=== PATIENT | male | born 1965 | race Caucasian/White ===

== ENCOUNTER 2019-05-30 02:17 | Inpatient (IN) | payer MEDICAID ==
[~2019-05-30] VITALS: Ht 172.7 cm; Wt 77.1 kg
[2019-05-30 04:00] VITALS: BP 161/80
[2019-05-30] MEDS ORDERED: ASPI-1152 PO (04:17)
[2019-05-30] MEDS ORDERED: ATOR20TA PO (04:17)
[2019-05-30] MEDS ORDERED: CALC667C6 PO (04:17)
[2019-05-30] MEDS ORDERED: FERR325T23 PO (04:20)
[2019-05-30] MEDS ORDERED: HYDR-4076 PO (04:35)
[2019-05-30] MEDS ORDERED: METO50TA16 PO (04:35)
[2019-05-30] MEDS ORDERED: NIFE60TA69 PO (04:35)
[2019-05-30] MEDS ORDERED: GABA-532 PO (04:35)
[2019-05-30] MEDS ORDERED: ONDA4AMP IJ (04:38)
[2019-05-30] MEDS ORDERED: TEMA15CA PO (04:40)
[2019-05-30] MEDS ORDERED: TEMAZEPAM 15 MG CAPSULE PO PRN (06:00)
[2019-05-30] MEDS ORDERED: ACETAMINOPHEN 325 MG TABLET PO PRN (06:00)
[2019-05-30] MEDS ORDERED: ALBUTEROL FS 2.5 MG/3 ML VIAL.NEB NEB PRN (06:00)
[2019-05-30] MEDS ORDERED: ONDANSETRON HCL/PF 4 MG/2 ML VIAL IVP PRN (06:00)
[2019-05-30] MEDS ORDERED: MORPHINE SULFATE INJ 2 MG/ML DISP.SYRIN IV PRN (06:00)
[2019-05-30] MEDS: METOPROLOL TARTRATE 50 MG TABLET PO SCH ×2 (07:24→22:27)
--- NOTE | 2019-05-30 07:32 | NUR ---
MS IGLESIA OPENING NOTES RECEIVED PATIENT IN BED, AWAKE AND ALERT. ARABIC SPEAKING. ON TELE MONITORING WITH SR: 71. HOB ELEVATED. NO SOB. DENIES ANY C/O PAIN NOR DISCOMFORT AT THIS TIME. RIGHT FA SL G#18 INTACT AND PATENT WITHOUT S/S OF COMPLICATIONS AT THIS TIME. BED IN LOWEST POSITION. BED SIDERAILS UP X2. CALL LIGHT WITHIN REACH. Addendum: 05/30/19 at 1012 by ALEXUS PATTERSON RN LEFT FA AV FISTULA WITH GOOD BRUIT/THRILL
[2019-05-30 07:57] LABS: BASOPHILS # (AUTO) 0.1 /CMM (0.0-0.2); BASOPHILS % (AUTO) 1.1 % (0.0-2.0); HEMATOCRIT 36 % (39-51); HEMOGLOBIN 11.9 g/dL (13.5-17.5); LYMPHOCYTES # (AUTO) 1.4 /CMM (0.8-4.8); LYMPHOCYTES % (AUTO) 31.6 % (20.0-44.0); MEAN CORPUSCULAR HGB CONC 33 g/dl (31.0-36.0); MEAN CORPUSCULAR VOLUME 99 fL (80-96); MONOCYTES # (AUTO) 0.7 /CMM (0.1-1.30); MONOCYTES % (AUTO) 15.1 % (2.0-12.0); NEUTROPHILS # (AUTO) 2.3 /CMM (1.8-8.9); NEUTROPHILS % (AUTO) 52.2 % (43.0-81.0); PLATELET COUNT (AUTO) 116 /CMM (150-450); RED BLOOD CELL COUNT(AUTO) 3.64 MIL/uL (4.5-6.0); WHITE BLOOD COUNT (AUTO) 4.5 K/uL (4.3-11.0)
[2019-05-30 08:00] VITALS: BP 126/69
[2019-05-30 08:16] LABS: ALANINE AMINOTRANSFERASE 44 U/L (12-78); ALBUMIN 3.1 g/dL (3.4-5.0); ALKALINE PHOSPHATASE 88 U/L (46-116); ASPARTATE AMINOTRANSFERASE 23 U/L (15-37); BILIRUBIN,TOTAL 0.4 mg/dL (0.2-1.0); CALCIUM, SERUM 8.1 mg/dL (8.5-10.1); CARBON DIOXIDE 33 mmol/L (21-32); CHLORIDE 95 mmol/L (98-107); GLUCOSE 82 mg/dL (74-106); MAGNESIUM 2.2 mg/dL (1.8-2.4); PHOSPHORUS 3.7 mg/dL (2.5-4.9); POTASSIUM 4.9 mmol/L (3.5-5.1); SODIUM SERUM 135 mmol/L (136-145); TOTAL PROTEIN, SERUM 6.9 g/dL (6.4-8.2); UREA NITROGEN, BLOOD 71 mg/dL (7-18)
[2019-05-30 08:22] LABS: CHOLESTEROL 81 mg/dL (<200); CREATININE 9.7 mg/dL (0.6-1.3); HDL CHOLESTEROL 45 mg/dL (40-60); LDL 27 mg/dL (0-99); THYROID STIMULATING HORMONE 0.622 uIU/mL (0.358-3.74); TRIGLYCERIDES 35 mg/dL (30-150)
--- NOTE | 2019-05-30 08:25 | NUR ---
MS RN NOTES RECEIVED LAB RESULTS FROM [facility] OF 9.7, NOTIFIED OLIVE AND PENDING [facility] CONSULT, AWAITING FOR RESPONSE.
--- NOTE | 2019-05-30 08:26 | NUR ---
MS RN NOTES PER PRIMARY HOSPITALIST, OLIVE FONSECA NP NO NEW ORDER AT THIS TIME. PATIENT PENDING [facility] CONSULT.
[2019-05-30] MEDS: NIFEdipine XL 60 MG TAB PO SCH (09:00)
[2019-05-30] MEDS ORDERED: ASPIRIN EC 81 MG TABLET.DR PO SCH (09:00)
[2019-05-30] MEDS: hydrALAZINE HCL 25 MG TABLET PO SCH ×3 (09:00→17:00)
[2019-05-30] MEDS ORDERED: FERROUS SULFATE (325 MG) 325 MG/TAB TABLET PO SCH (09:00)
[2019-05-30 09:04] LABS: LYMPHOCYTES % (MANUAL) 33 % (16-48); MONOCYTES % (MANUAL) 12 % (0-11.0); NEUTROPHILS % (MANUAL) 55 (42-76)
[2019-05-30] MEDS: PANTOPRAZOLE 40 MG TABLET.DR PO SCH (09:51)
[2019-05-30] MEDS: GABAPENTIN 100 MG CAPSULE PO SCH ×3 (09:51→17:20)
[2019-05-30] MEDS: CALCIUM ACETATE 667 MG TABLET PO SCH ×3 (09:52→17:20)
[2019-05-30] MEDS: DOCUSATE SODIUM 100 MG CAPSULE PO SCH ×2 (09:52→17:20)
--- NOTE | 2019-05-30 09:54 | NUR ---
MS RN NOTES HELD AM BP MEDS, PATIENT SCHEDULED TO HAVE HD TODAY. PROTONIX GIVEN LATE DUE TO NPO STATUS AT THAT TIME.
--- NOTE | 2019-05-30 10:01 | NUR ---
MS RN NOTE PRIMARY HOSPITALIST OLIVE FONSECA, ELECTRONIC EQUIPMENT REPAIRMEN AT THE BEDSIDE FOR ROUNDING, NO NEW ORDERS AT THIS TIME, ANTICIPATE HD TODAY AFTER , [facility] CONSULTS ON PATIENT.
[2019-05-30 12:46] LABS: THYROID STIMULATING HORMONE 0.664 uIU/mL (0.358-3.74)
--- NOTE | 2019-05-30 15:30 | NUR ---
MS RN NOTE HOME MEDICATIONS TAKEN TO PHARMACY PER PROTOCOL.
--- NOTE | 2019-05-30 15:54 | NUR ---
MS RN NOTE PER HD NURSE YORDY, ANOTHER HD NURSE DANIELLE WILL BY LATER TODAY FOR HD.
[2019-05-30 16:00] VITALS: BP 116/64
--- NOTE | 2019-05-30 17:21 | NUR ---
MS RN NOTES HELD 5 PM BP MEDS, PATIENT WILL HAVE HD TODAY.
--- NOTE | 2019-05-30 17:35 | NUR ---
MS RN NOTES PER DANIELLE DIALYSIS NURSE, SHE WILL COME IN ONE HOUR TO DIALYZED PATIENT.
--- NOTE | 2019-05-30 18:54 | NUR ---
MS RN CLOSING NOTES PATIENT IN BED, ATE DINNER WITH GOOD INTAKE. HOB ELEVATED. DENIES ANY C/O DISCOMFORT. DENIES C/O SOB. HOB ELEVATED. RIGHT FA G#18 INTACT AND PATENT WITH S/S OF INFILTRATION. LEFT FOREARM AV FISTULA, BRUIT/THRILL PRESENT. FAMILY AT BEDSIDE. DIALYSIS NURSE ARRIVED, WILL INITIATE HD. ENDORSED TO ONCOMING SHIFT.
--- NOTE | 2019-05-30 19:15 | NUR ---
MS MARY INITIAL NOTES RECEIVED REPORT FROM AM NURSE WHILE DOING ROUNDS AND SEEN AWAKE AND ALERT WITH ON GOING DIALYSIS TREATMENT WITH DIALYSIS NURSE AT THE BEDSIDE WELL HIS DAUGHTER. PT DENIES ANY PAIN OR ANY DISCOMFORT. NO SIGNS OF ANY DISTRESS NOTED. WILL CONTINUE MONITORING.
[2019-05-30 20:00] VITALS: BP 128/73
[2019-05-30] MEDS ORDERED: ATORVASTATIN 10 MG TABLET PO SCH (22:00)
--- NOTE | 2019-05-30 22:27 | NUR ---
ms cleo notes dialysis finished and per dialysis nurse output 2700 ml. pt awake and alert watching TV. due meds given as ordered. snacks also served per pt requested. kept him comfortable at all times. will continue monitoring. place call light at reach.
--- NOTE | 2019-05-31 01:58 | NUR ---
ms bow maker custom notes checked pt he's sleeping comfortably in bed without any distress noted. kept him warm and comfortable at all times. place call light at reach will continue monitoring.
[2019-05-31 06:29] LABS: EOSINOPHILS % (AUTO) 0.1 % (0.0-6.0); HEMATOCRIT 37 % (39-51); HEMOGLOBIN 12.3 g/dL (13.5-17.5); LYMPHOCYTES % (AUTO) 25.1 % (20.0-44.0); MEAN CORPUSCULAR HGB CONC 33 g/dl (31.0-36.0); MEAN CORPUSCULAR VOLUME 99 fL (80-96); MONOCYTES # (AUTO) 0.5 /CMM (0.1-1.30); MONOCYTES % (AUTO) 12.6 % (2.0-12.0); NEUTROPHILS # (AUTO) 2.4 /CMM (1.8-8.9); NEUTROPHILS % (AUTO) 61.2 % (43.0-81.0); PLATELET COUNT (AUTO) 132 /CMM (150-450); RED BLOOD CELL COUNT(AUTO) 3.75 MIL/uL (4.5-6.0); WHITE BLOOD COUNT (AUTO) 3.9 K/uL (4.3-11.0)
[2019-05-31] MEDS: PANTOPRAZOLE 40 MG TABLET.DR PO SCH (06:41)
--- NOTE | 2019-05-31 06:52 | NUR ---
ms home theater expert closing notes pt sleeping but arouse to touch and to his name, due med given and pt tolerated well. stable todd the night and slept well. kept him warm and comfortable at all times. No signs of any distress noted. on semi fowlers position with side rails x2 up and bed in low and lock in position. place call light at reach. endorse to am nurse Rossy/jeffrey for continuity of care.
[2019-05-31 07:01] LABS: ALBUMIN 3.2 g/dL (3.4-5.0); BILIRUBIN,TOTAL 0.3 mg/dL (0.2-1.0); CALCIUM, SERUM 8.1 mg/dL (8.5-10.1); MAGNESIUM 2.3 mg/dL (1.8-2.4); PHOSPHORUS 4.2 mg/dL (2.5-4.9); POTASSIUM 5.4 mmol/L (3.5-5.1); TOTAL PROTEIN, SERUM 7.4 g/dL (6.4-8.2)
[2019-05-31 07:08] LABS: CREATININE 8.4 mg/dL (0.6-1.3)
--- NOTE | 2019-05-31 07:24 | NUR ---
MS RN OPENING NOTES RECEIVED PATIENT IN BED, AWAKE AND ALERT ORIENTED X3. CONGOLESE SPEAKING. HOB ELEVATED. NO SOB. DENIES ANY C/O PAIN NOR DISCOMFORT AT THIS TIME. RIGHT FA SL G#18 INTACT AND PATENT NO S/S OF INFILTRATION. BED ALARM ON. BRP. BED IN LOWEST POSITION. BED SIDERAILS UP X2. CALL LIGHT WITHIN REACH.
[2019-05-31] MEDS: CALCIUM ACETATE 667 MG TABLET PO SCH ×3 (08:18→16:16)
[2019-05-31] MEDS: GABAPENTIN 100 MG CAPSULE PO SCH ×3 (08:18→16:16)
[2019-05-31] MEDS: DOCUSATE SODIUM 100 MG CAPSULE PO SCH ×2 (08:18→16:16)
[2019-05-31] MEDS: METOPROLOL TARTRATE 50 MG TABLET PO SCH (09:00)
[2019-05-31] MEDS: hydrALAZINE HCL 25 MG TABLET PO SCH ×3 (09:00→16:17)
[2019-05-31] MEDS: NIFEdipine XL 60 MG TAB PO SCH (09:00)
--- NOTE | 2019-05-31 09:54 | NUR ---
MS RN NOTES HELD AM BP MEDS, ANTICIPATING HD TODAY.
[2019-05-31] MEDS ORDERED: LEVO500T75 PO (10:27)
--- NOTE | 2019-05-31 12:30 | NUR ---
MS RN NOTE PER HD NURSE YORDY, HE SPOKE WITH DATE PULLER WHO IS REQUESTING STAT BMP POST HD PRIOR TO D/C TO INSURE ACCESS IS FUNCTIONING PROPERLY. ORDERS CONFIRMED AND CARRIED OUT.
--- NOTE | 2019-05-31 13:00 | NUR ---
MS RN NOTES PATIENT COMPLETED HD THERAPY WITH 1.5 L OUTPUT. PATIENT WITH B/P 181/95, HR: 80, T: 97.9 ORAL, R:20 O2SAT OF 98%. BP MEDS GIVEN ORDERED. DENIES ANY C/O PAIN NOR DISCOMFORT AT THIS TIME. CALL LIGHT WITHIN REACH.
[2019-05-31 13:39] LABS: CALCIUM, SERUM 8.3 mg/dL (8.5-10.1); CREATININE 6.4 mg/dL (0.6-1.3); POTASSIUM 4.6 mmol/L (3.5-5.1)
--- NOTE | 2019-05-31 14:00 | NUR ---
MS RN NOTE INFORMED REGARDING UPDATED BMP RESULTS POST HD, PER DR PEREZ TO D/C AND FOR PT TO CONTINUE REGULAR HD SCHEDULE.
[2019-05-31 15:10] VITALS: BP 183/80
--- NOTE | 2019-05-31 15:10 | NUR ---
MS RN NOTE INFORMED PRIMARY HOSPITALIST OLIVE FONSECA NP REGARDING PT ELEVATED BP OF 183/80 MANUAL AFTER ADMINISTRATION OF HYDRALAZINE 25MG AT 1315. ORDERS RECEIVED FOR CLONIDINE 0.1 MG PO X1 AND TO RE-CHECK BP 30 MINS AFTER ADMINISTRATION. VERIFIED VIA READ BACK AND CARRIED OUT.
[2019-05-31] MEDS ORDERED: CLONIDINE HCL 0.1 MG TABLET PO ONE (15:30)
[2019-05-31 15:50] VITALS: BP_SYST 148; BP_SYST 190; BP_DIAS 63; BP_DIAS 90
--- NOTE | 2019-05-31 16:54 | NUR ---
MS RN NOTE PER PRIMARY HOSPITALIST OLIVE FONSECA, JOYCE ADMINISTER ONE TIME DOSE OF LABETALOL 100MG IF HYDRALAZINE 25MG DOES NOT BRING DOWN BP AFTER 45 MINS OF ADMINISTRATION.
[2019-05-31] MEDS ORDERED: LABETALOL HCL (100MG) 100 MG TABLET PO ONE (17:00)
[2019-05-31 17:06] VITALS: BP 192/90
--- NOTE | 2019-05-31 17:06 | NUR ---
MS RN NOTE BP RE-CHECK 192/90, HR 96 MANUAL. ADMINISTERED LABETALOL 100MG X1 ORDERED.
--- NOTE | 2019-05-31 18:20 | NUR ---
MS RN NOTE INFORMED PRIMARY HOSPITALIST OLIVE FONSECA NP REGARDING RECHECK BP OF 166/88 MANUAL, AWAITING RESPONSE.
--- NOTE | 2019-05-31 18:43 | NUR ---
MS RN CLOSING NOTES PATIENT IN BED, RESTING COMFORTABLY. AWAKE AND ALERT ORIENTED X3. FIJIAN SPEAKING, PHOTOCOPIER TECHNICIAN UTILIZED. HOB ELEVATED. NO S/S OF RESPIRATORY DISTRESS. DENIES ANY C/O PAIN NOR DISCOMFORT AT THIS TIME. DENIES ANY C/O HEADACHE. HAD HD TREATMENT TODAY WITH 1.7 L OUTPUT. RIGHT FA SL G#18 INTACT AND PATENT, NO COMPLICATIONS OBSERVED. BRP. BED IN LOWEST POSITION. BED SIDERAILS UP X2. CALL LIGHT WITHIN REACH. ENDORSED TO NEXT SHIFT.
--- NOTE | 2019-05-31 18:47 | NUR ---
MS RN NOTE PER PRIMARY HOSPITALIST OLIVE FONSECA NP OKAY TO D/C PT WITH CURRENT BP AND TO CONTINUE HOME MEDICATIONS SCHEDULED AND HD. WILL INFORM PT AND DISCUSS TRANSPORTATION.
--- NOTE | 2019-05-31 19:00 | NUR ---
MS RN NOTE PT REPORTS THAT HIS DAUGHTER JAIME IS ABLE TO PICK HIM UP AT AROUND 8 PM. DISCHARGE PAPERWORK COMPLETED. WILL ENDORSE TO PERFORMANCE TEST ENGINEER NURSE.
--- NOTE | 2019-05-31 19:31 | NUR ---
MS RN RECEIVE PT IN BED WATCHING TV A/O X 3, STABLE, RESPIRATIONS EVEN AND UNLABORED, SAFETY MEASURES IN PLACE. WILL CONTINUE TO MONITOR AWAITING DAUGHTER FOR DISCHARGE
--- NOTE | 2019-05-31 20:05 | NUR ---
PATIENT DISCHARGE PATIENT LEFT AT 2004, PATIENT ON STABLE CONDITION NO S/S OF DISTRESS NOTED, NO CHEST PAIN, NO HEADACHE, NO NAUSEA AND VOMITING, NO COMPLAIN OF PAIN, VS STABLE, HEALTH EDUCATION AND EXIT CARE WAS PROVIDED, EDUCATION ABOUT DISEASE AND RISKS AND BENEFITS FOLLOW UP CARE PROVIDED, SON VERBALIZED UNDERSTANDING. DOCUMENTS WAS PROVIDED. CONTINUE MEDICATION PRESCRIPTION WAS PROVIDED. REMOVED I.V HEPLOCK. OCCUPATIONAL MEDICINE SPECIALIST BY SON PATIENT APPRECIATIVE TO NURSES AND THANKFUL. VS STABLE BP 158/77 R 19 P 79 T 98.6 02 SAT 100 R.A Addendum: 06/01/19 at 0141 by RAQUEL CHURCH RN ALL BELONGINGS SENT HOME
== END 2019-05-31 20:05 | disposition home or self-care (01) | DRG 194 ==
LOC: TELE 03:14 → MED 09:01
PROVIDERS: ADMIT Registered Nurse; ATTEND Registered Nurse
PROC: 5A1D70Z Performance of Urinary Filtration, Intermittent, Less than 6 Hours Per Day (ICD-10-PCS; principal; 2019-05-30)
DX: I13.2 Hypertensive heart and chronic kidney disease with heart failure and with stage 5 chronic kidney disease, or end stage renal disease (principal); J96.01 Acute respiratory failure with hypoxia; N18.6 End stage renal disease; E87.70 Fluid overload, unspecified; D63.1 Anemia in chronic kidney disease; E78.5 Hyperlipidemia, unspecified; Z87.891 Personal history of nicotine dependence; Z87.01 Personal history of pneumonia (recurrent); Y95 Nosocomial condition; N25.81 Secondary hyperparathyroidism of renal origin; I50.33 Acute on chronic diastolic (congestive) heart failure
CPT/HCPCS: 36415; 71045-TC; 76770-TC; 80048-TC; 80053-TC; 80061-TC; 82728-TC; 83540-TC; 83735-TC; 84100-TC; 84439-TC; 84443-TC; 84484-TC; 85025-TC; 86704; 86706; 87081-TC; 87340; 90935-TC; 93307-TC; G0378